=== PATIENT | male | born 1980 | race Caucasian/White ===

== ENCOUNTER 2024-01-27 09:49 | Day surgery (SDC) | payer BC, SELFPAY ==
[2024-01-27] VITALS (8 sets, daily range): BP systolic 97–141; BP diastolic 57–97; PULSE 66–74; RESP 14–17; TEMP 36.7; O2SAT 97–99; BMI 26.4
[2024-01-27] MEDS: BUPIVACAINE 0.5% 30 ML INJECTION (09:55)
--- NOTE | 2024-01-27 10:15 | SUR.PREOP ---
SAME DAY SURGERY LOCAL INJECTION SITE VERIFICATION WAS PERFORMED BY SURGEON/PA AND PATIENT PRIOR TO LOCAL ANESTHETIC BEING INJECTED TO OPERATIVE SITE.
--- NOTE | 2024-01-28 08:02 | P.ORPRC_ITS ---
Procedure Note Date of procedure: 01/27/24 Procedure: PREOPERATIVE DIAGNOSIS: 1. Right long finger ulnar sided, proximal aspect benign mass POSTOPERATIVE DIAGNOSIS: 1. Right long finger ulnar sided, proximal aspect benign mass PROCEDURE: 1. Right long finger ulnar sided, proximal aspect benign mass open excision SURGEON: Paolo Ramirez MD. NEUROLOGY HOSPITALIST: Junior Morales PA-C - Of note, an certified medical assistant was critical for this case to aid in patient positioning, tissue retraction, limb manipulation/positioning, and closure. ANESTHESIA: Local anesthetic (50:50 mixture of 2% lidocaine plain and 0.5% marcaine plain) IMPLANTS: None TOURNIQUET: 10 minute distal forearm Esmarch wrap tourniquet COMPLICATIONS: None evident INDICATIONS: The patient is a pleasant 43-year-old male who has experienced right long finger ulnar sided mass/cyst development over number of months. 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 The pain has progressively gotten worse. Nonoperative management has been tried but unsuccessful. Given the failure of nonoperative management, and how this affects daily life, surgery was recommended. DESCRIPTION OF PROCEDURE: Following a thorough discussion of risks, benefits, and alternatives consent was obtained and the operative extremity was marked. The patient was brought to the operating room and placed supine on the operating table. No antibiotics were administered as this was planned to be a local case only. Proper time-out was performed identifying proper patient, site, and procedure. The operative extremity was prepped and draped in the appropriate sterile fashion using ChloraPrep. The limb was exsanguinated and the tourniquet inflated. An incision was made on the ulnar side of the long finger mid axial line roughly from the PIP joint to the proximal digital crease. Sharp incision through the skin, and blunt dissection through subcutaneous tissue allowed us to protect crossing neurologic structures. The growth was quickly encountered. This was mobilized from the surrounding adhesed tissue. At 1 point, the sac was punctured and a thick, gelatinous, clear, non malodorous fluid was expressed. This appeared to be consistent with a ganglion cyst. Prior to cyst rupture, the cyst measured approximately 1 cm in diameter. The remaining cystic sac was amputated at its base with bipolar cautery. It was sent for permanent pathology. At this stage, the tourniquet was deflated and hemostasis achieved. Thorough irrigation normal saline was performed. Closure was performed with 4-O nylon. Soft dressings were applied, and the patient was awoken/transferred to the recovery room in stable condition. PLAN: 1. Encourage elevation of the operative extremity. 2. Range of motion of the operative extremity/digits as tolerated. 3. Ibuprofen, acetaminophen and/or oxycodone as needed for pain. 4. Follow up with PA visit in 12-16 days for wound check and suture removal.
== END 2024-01-27 11:57 | disposition home or self-care (01) ==
PROVIDERS: PCP Family Medicine; Visit Provider Orthopaedic Surgery Sports Medicine
PROC: (CPT 26160; principal; 2024-01-27 10:45)
DX: M67.441 Ganglion, right hand (principal)
CPT/HCPCS: 26160; 88304; J0665